=== PATIENT | male | born 2000 | race Caucasian/White ===

== ENCOUNTER 2022-11-03 09:11 | Emergency (ER) | payer OTHER ==
--- NOTE | 2022-11-03 09:35 | ED EENT ---
History of Present Illness General Chief Complaint: Dental Problems/Pain Stated Complaint: DENTAL PAIN Source: patient History of Present Illness Date Seen by Provider: Nov 03, 2022 Time Seen by Provider: 09:35 Initial Comments 22-year-old male that was brought to the emergency department by his mother due to dental pain and not being able to sleep. He has a broken tooth on the right maxillary area. He states he had not had problems with it until the last few weeks. He had increasing pain in the area and had seen a dentist last week. They started him on Pen-Vee K for his tooth and made a follow-up appointment to have the tooth extracted. The follow-up appointment is not until November 29. He has been taking ibuprofen and occasional Tylenol to help with this pain. However he felt like his pain was worsening instead of improving and he came to the emergency department this morning for further evaluation and treatment. He denies having fever or chills. He has had no obvious drainage from the tooth. Severity: severe Location: dental Prearrival Treatment: over the counter meds Associated Symptoms: No change in hearing, No cough, No drooling, No ear drainage; facial pain/swelling; No fever; malaise; No nasal congestion/drainage, No poor fluid intake, No poor solids intake, No sinus infection, No sore throat; tooth pain; No voice change Allergies and Home Medications Allergies Coded Allergies: No Known Drug Allergies (Unverified , 11/03/22) Patient Home Medication List Home Medication List Reviewed: Yes Hydrocodone/Acetaminophen (Hydrocodone-Acetamin 5-325 mg) 5 Mg-325 Mg Tablet, 1 TAB PO Q6H PRN for PAIN-SEVERE (8-10) Prescribed by: ALDEN COHEN on 11/03/22 0948 Ibuprofen (Ibuprofen) 800 Mg Tablet, 800 MG PO Q8H PRN for PAIN Prescribed by: ALDEN COHEN on 11/03/22 0911 Review of Systems Review of Systems Constitutional: No chills, No fever Eyes: No Symptoms Reported Ears: No Symptoms Reported Nose: no symptoms reported Mouth: see HPI Throat: no symptoms reported Respiratory: no symptoms reported Cardiovascular: no symptoms reported Gastrointestinal: no symptoms reported Musculoskeletal: no symptoms reported Skin: no symptoms reported Physical Exam Vital Signs Vital Signs - First Documented 11/03/22 09:41 Temp 36.6 Pulse 84 Resp 16 B/P (MAP) 140/79 (99) Pulse Ox 98 O2 Delivery Room Air Height, Weight, BMI Height: '" Weight: lbs. oz. 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 Have him continue the antibiotics. Follow-up with dentist as soon as possible for definitive care. Departure Impression Primary Impression: Pain due to dental caries Disposition: HOME, SELF-CARE Condition: Stable Departure-Patient Inst. Decision time for Depature: 09:44 Referrals: NO,LOCAL PHYSICIAN (PCP) Primary Care Physician [facility] Patient Instructions: Tooth Decay ED, Dental Pain ED Add. Discharge Instructions: Continue with antibiotics to help with infection. This will also help decrease your pain. You may continue to take the ibuprofen to help with severe pain. Use the hydrocodone with acetaminophen for severe pain unrelieved by ibuprofen. Stay well-hydrated and drink plenty of fluids. Consider taking MiraLAX or laxative if you are having to use the hydrocodone consistently as it can cause constipation. Take the medications with food to help limit stomach irritation, nausea, vomiting. If having continued pain or not improving with the pain medicine check back through the clinic as they may need to continue antibiotics for additional pain medicine. Try to check with dentist for your tooth. Let them know you are having more pain and see if there was any way they could move up the appointment for the tooth extraction. All discharge instructions reviewed with patient and/or family. Voiced understanding. Scripts Hydrocodone/Acetaminophen (Hydrocodone-Acetamin 5-325 mg) 5 Mg-325 Mg Tablet 1 TAB PO Q6H PRN for PAIN-SEVERE (8-10) for 4 Days, #16 TAB 0 Refills Prov: ALDEN COHEN MD 11/03/22 Ibuprofen (Ibuprofen) 800 Mg Tablet 800 MG PO Q8H PRN for PAIN for 10 Days, #30 TAB 0 Refills Prov: ALDEN COHEN MD 11/03/22 ALDEN COHEN MD Nov 03, 2022 09:35
[2022-11-03] MEDS ORDERED: IBUP-1780 PO (09:47)
[2022-11-03] MEDS ORDERED: ACHD5005 PO (09:47)
[2022-11-03 09:57] VITALS: BP 140/79
== END 2022-11-03 09:56 | disposition home or self-care (01) ==
LOC: ER FS 09:13
DX: K02.9 Dental caries, unspecified (principal); Z28.310 Unvaccinated for COVID-19
CPT/HCPCS: 99282